=== PATIENT | male | born 1945 | race Caucasian/White ===

== ENCOUNTER 2018-04-06 02:46 | Emergency (ER) | payer OTHER ==
[~2018-04-06] VITALS: Ht 170.2 cm; Wt 68.0 kg
[2018-04-06 02:56] VITALS: Ht 170.2 cm; Wt 68.0 kg
[2018-04-06 04:13] VITALS: BP 160/89
== END 2018-04-06 04:13 | disposition home or self-care (01) ==
LOC: ED 02:46
DX: R33.9 Retention of urine, unspecified (principal); E78.00 Pure hypercholesterolemia, unspecified; Z87.438 Personal history of other diseases of male genital organs

== ENCOUNTER 2018-04-06 15:25 | Emergency (ER) | payer OTHER ==
[~2018-04-06] VITALS: Ht 170.2 cm; Wt 66.8 kg
[2018-04-06 15:36] VITALS: Ht 170.2 cm; Wt 66.8 kg
[2018-04-06 17:19] VITALS: BP 134/62
== END 2018-04-06 17:19 | disposition home or self-care (01) ==
LOC: ED 15:25
DX: T85.618A Breakdown (mechanical) of other specified internal prosthetic devices, implants and grafts, initial encounter (principal); R33.9 Retention of urine, unspecified; E78.00 Pure hypercholesterolemia, unspecified

== ENCOUNTER 2018-04-08 20:20 | Emergency (ER) | payer OTHER ==
[~2018-04-08] VITALS: Ht 170.2 cm; Wt 68.0 kg
[2018-04-08 21:01] VITALS: Ht 170.2 cm; Wt 68.0 kg
[2018-04-08 21:43] VITALS: BP 141/88
== END 2018-04-08 21:43 | disposition home or self-care (01) ==
LOC: ED 20:20
DX: Z46.6 Encounter for fitting and adjustment of urinary device (principal)